=== PATIENT | male | born 1995 | race African-American/Black ===

== ENCOUNTER 2025-01-02 09:14 | Emergency (ER) | payer BC ==
[~2025-01-02] VITALS: Ht 165.1 cm; Wt 79.3 kg
[2025-01-02 09:18] VITALS: PULSE 82; RESP 20; O2SAT 99
[2025-01-02 09:23] VITALS: BP 118/77; TEMP 36.6; O2SAT 99
== END 2025-01-02 10:36 | disposition left against medical advice (07) ==
LOC: ER 09:14
DX: R07.0 Pain in throat (principal); Z53.21 Procedure and treatment not carried out due to patient leaving prior to being seen by health care provider